=== PATIENT | male | born 1995 | race Hispanic/Latino ===

== ENCOUNTER 2017-11-19 19:53 | Emergency (ER) | payer OTHER ==
[~2017-11-19] VITALS: Ht 170.2 cm; Wt 65.8 kg
[~2017-11-19 19:53] MED LIST: no meds
== END 2017-11-19 20:23 | disposition left against medical advice (07) ==
LOC: ER 19:53
DX: M79.671 Pain in right foot (principal)

== ENCOUNTER 2018-02-20 22:48 | Emergency (ER) | payer SELFPAY ==
[~2018-02-20] VITALS: Ht 170.2 cm; Wt 65.8 kg
== END 2018-02-21 00:15 | disposition left against medical advice (07) ==
LOC: ER 22:48
DX: R11.2 Nausea with vomiting, unspecified (principal)